=== PATIENT | male | born 1960 | race African-American/Black ===

== ENCOUNTER 2017-07-08 18:19 | Inpatient (IN) | payer SELFPAY ==
[~2017-07-08] VITALS: Ht 193 cm; Wt 112.5 kg
--- NOTE | 2017-07-08 18:38 | PHYS DOC ---
Adult General Chief Complaint Chief Complaint: SHORTNESS OF BREATH HPI HPI Patient is a 56 year old male who presents with complaint of shortness of breath. Patient states that he became short of breath earlier today. Patient states that he has been struggling with cough on and on over the past 5 weeks but states over the past week his cough has become more frequent. Patient also notes that he has had sore throat but denies any fever. Patient has not taken any medications for his symptoms. The patient states that he has been treated for asthma symptoms in the past but has not been on any medications over the course the last several months for treatment. Patient denies any chest pain. Cough is nonproductive. Shortness of breath symptoms worsen with exertion. Review of Systems Review of Systems Constitutional: Denies fever or chills [] Eyes: Denies change in visual acuity, redness, or eye pain [] HENT: Sore throat[] Respiratory: Nonproductive cough, shortness of breath[] Cardiovascular: Denies chest pain or edema[] GI: Denies abdominal pain, nausea, vomiting, bloody stools or diarrhea [] : Denies dysuria or hematuria [] Musculoskeletal: Denies back pain or joint pain [] Integument: Denies rash or skin lesions [] Neurologic: Denies headache, focal weakness or sensory changes [] All other systems were reviewed and found to be within normal limits, except as documented in this note. Allergies Allergies Allergies Coded Allergies Type Severity Reaction Last Updated Verified No Known Drug Allergies 07/08/17 No Physical Exam Physical Exam Constitutional: Alert, afebrile, appears in mild to moderate risk for distress. [] HENT: Normocephalic, atraumatic, bilateral external ears normal, oropharynx moist, no oral exudates, nose normal. [] Eyes: PERRLA, EOMI, conjunctiva normal, no discharge. [] Neck: Normal range of motion, no tenderness, supple, no stridor. [] Cardiovascular: Tachycardia, regular rhythm, no murmur [] Lungs & Thorax: Mild to moderate restriction of air movement bilaterally, no wheezes or rales, occasional rhonchi present[] Abdomen: Bowel sounds normal, soft, no tenderness, no masses, no pulsatile masses. [] Skin: Warm, dry, no erythema, no rash. [] Back: No tenderness, no CVA tenderness. [] Extremities: No tenderness, no cyanosis, no clubbing, ROM intact, no edema. [] Neurologic: Alert and oriented X 3, normal motor function, normal sensory function, no focal deficits noted. [] Current Patient Data Vital Signs Vital Signs Date Time Temp Pulse Resp B/P (MAP) Pulse Ox O2 Delivery O2 Flow Rate FiO2 07/08/17 20:20 83 20 136/73 (94) 95 Room Air 07/08/17 18:33 98.4 Lab Results Laboratory Tests Test 07/08/17 19:25 White Blood Count 7.7 x10^3/uL Red Blood Count 5.64 x10^6/uL Hemoglobin 15.6 g/dL Hematocrit 46.2 % Mean Corpuscular Volume 82 fL Mean Corpuscular Hemoglobin 28 pg Mean Corpuscular Hemoglobin Concent 34 g/dL Red Cell Distribution Width 14.1 % Platelet Count 220 x10^3/uL Neutrophils (%) (Auto) 56 % Lymphocytes (%) (Auto) 35 % Monocytes (%) (Auto) 7 % Eosinophils (%) (Auto) 2 % Basophils (%) (Auto) 1 % Neutrophils # (Auto) 4.3 x10^3uL Lymphocytes # (Auto) 2.7 x10^3/uL Monocytes # (Auto) 0.5 x10^3/uL Eosinophils # (Auto) 0.2 x10^3/uL Basophils # (Auto) 0.0 x10^3/uL D-Dimer (Isidra) 0.40 mg/L Sodium Level 142 mmol/L Potassium Level 3.4 mmol/L Chloride Level 104 mmol/L Carbon Dioxide Level 28 mmol/L Anion Gap 10 Blood Urea Nitrogen 13 mg/dL Creatinine 1.0 mg/dL Estimated GFR (Cockcroft-Gault) 93.9 BUN/Creatinine Ratio 13 Glucose Level 145 mg/dL Calcium Level 8.8 mg/dL Magnesium Level 1.8 mg/dL Total Bilirubin 0.2 mg/dL Aspartate Amino Transf (AST/SGOT) 27 U/L Alanine Aminotransferase (ALT/SGPT) 30 U/L Alkaline Phosphatase 89 U/L Creatine Kinase 502 U/L Creatine Kinase MB (Mass) 3.5 ng/mL Creatine Kinase MB Relative Index 0.7 % Troponin I Quantitative < 0.017 ng/mL RU-Vri-D-Type Natriuretic Peptide 12 pg/mL Total Protein 8.0 g/dL Albumin 3.3 g/dL Albumin/Globulin Ratio 0.7 Current Medications Medications (Trade) Dose Ordered Sig/Melida Route PRN Reason Start Time Stop Time Status Last Admin Dose Admin Albuterol/ Ipratropium (Duoneb) 3 ml 1X ONCE NEB 07/08/17 18:45 07/08/17 19:16 DC 07/08/17 18:51 Prednisone (Prednisone) 50 mg 1X ONCE PO 07/08/17 18:45 07/08/17 19:16 DC 07/08/17 19:03 Albuterol Sulfate (Ventolin) 2.5 mg 1X ONCE NEB 07/08/17 18:45 07/08/17 19:16 DC 07/08/17 18:52 Prednisone (Prednisone) 20 mg STK-MED ONCE .ROUTE 07/08/17 18:55 07/08/17 18:56 DC Aspirin (Children'S Aspirin) 324 mg 1X ONCE PO 07/08/17 19:15 07/08/17 19:16 DC 07/08/17 19:16 Sodium Chloride 1,000 ml @ 1,000 mls/hr Q1H IV 07/08/17 19:02 07/08/17 20:01 DC 07/08/17 19:18 EKG EKG Interpreted by me: Heart rate 108, sinus tachycardia, leftward axis, T-wave inversions in the lateral leads, no acute ST elevations or depressions[] Radiology/Procedures Radiology/[place] [address] IMAGING REPORT Signed PATIENT: AINSLEY LARSON ACCOUNT: [id number] : 1960 LOCATION: ER AGE: 56 SEX: M EXAM STATUS: REG ER ORD. PHYSICIAN: YONI BAGLEY MD REASON: shortness of breath, cough PROCEDURE: CHEST PA & LATERAL CHEST PA LATERAL History: SHORTNESS OF BREATH WITH COUGH, SMOKER 1/2 PPD Comparison: None. Findings: 2 views of the chest are submitted. There is some motion degradation. There is a round nodular opacity of the right lower lobe, fairly opaque. Cardiac silhouette is within normal limits. No significant pleural fluid, pneumothorax, lobar consolidation. Heart size is considered within normal limits. Impression: 1. There is fairly opaque nodular opacity in the right lower lobe although nonemergent CT evaluation recommended for further evaluation, no previous exams at this institution available for comparison. Electronically signed by: Keegan Villanueva MD (07/08/2017 6:51 PM) [facility] DICTATED AND SIGNED BY: KEEGAN VILLANUEVA MD DATE: 07/08/17 0758 CC: YONI BAGLEY MD; PCP,NO ~ [] Course & Med Decision Making Course & Med Decision Making Pertinent Labs and Imaging studies reviewed. (See chart for details) Patient was treated with DuoNeb, albuterol, and prednisone in the emergency department. Patient stated that he had mild improvement in symptoms. The patient 's EKG shows T-wave inversions in the lateral leads which raises potential concern for an acute cardiac event. Given that there is no comparison at this time, the patient will need admission to the hospital for further cardiac evaluation as well as further treatment of shortness of breath symptoms. I spoke with Dr. Taylor who accepted care patient in hospital. Dragon Disclaimer Dragon Disclaimer This electronic medical record was generated, in whole or in part, using a voice recognition dictation system. Departure Departure: Impression: Primary Impression: Dyspnea on exertion Additional Impression: Abnormal EKG Disposition: ADMITTED INPATIENT Admitting Physician: Kaycee Taylor Condition: STABLE Referrals: PCP,NO (PCP) Problem Qualifiers YONI BAGLEY MD July 08, 2017 18:38
[2017-07-08] MEDS ORDERED: predniSONE 10 MG TABLET PO ONE (18:45)
[2017-07-08] MEDS ORDERED: IPRATRPIUM/ALBUTEROL 0.5/2.5MG 3 ML NEBU. NEB ONE (18:45)
[2017-07-08] MEDS ORDERED: ALBUTEROL SULFATE 2.5 MG/3 ML NEBU. NEB ONE (18:45)
--- NOTE | 2017-07-08 18:54 | RAD ---
CHEST PA LATERAL History: SHORTNESS OF BREATH WITH COUGH, SMOKER 1/2 PPD Comparison: None. Findings: 2 views of the chest are submitted. There is some motion degradation. There is a round nodular opacity of the right lower lobe, fairly opaque. Cardiac silhouette is within normal limits. No significant pleural fluid, pneumothorax, lobar consolidation. Heart size is considered within normal limits. Impression: 1. There is fairly opaque nodular opacity in the right lower lobe although nonemergent CT evaluation recommended for further evaluation, no previous exams at this institution available for comparison. Electronically signed by: Bimal Fox MD (07/08/2017 6:51 PM) [facility]
[2017-07-08] MEDS ORDERED: predniSONE 20 MG TABLET ONE (18:55)
[2017-07-08] MEDS ORDERED: IV NORMAL SALINE 1,000ML 1,000 ML IV SCH (19:02)
[2017-07-08] MEDS ORDERED: ASPIRIN 81 MG TAB.CHEW PO ONE (19:15)
--- NOTE | 2017-07-08 19:45 | EKG ---
[address] [address] Test Date: 2017-07-08 Test Time: 18:57:08 Pat Name: AINSLEY LARSON Department: Room: Gender: M [employer] Consultant: LUAN : 1960 Requested By: YONI BAGLEY Order Number: [id number] Reading MD: Measurements Intervals [place] Rate: 108 P: -75 WA: 132 QRS: -19 QRSD: 96 T: 97 QT: 320 QTc: 432 Interpretive Statements SINUS TACHYCARDIA LEFTWARD AXIS QRS(T) CONTOUR ABNORMALITY CONSISTENT WITH ANTEROSEPTAL INFARCT PROBABLY OLD T ABNORMALITY IN HIGH LATERAL LEADS ABNORMAL ECG RI6.01 No previous ECG available for comparison
[2017-07-08 19:51] LABS: BASO % 1 % (0-3); EOS # 0.2 x10^3/uL (0.0-0.7); EOS % 2 % (0-3); HEMATOCRIT 46.2 % (39.0-53.0); HEMOGLOBIN 15.6 g/dL (13.0-17.5); LYMPH # 2.7 x10^3/uL (1.0-4.8); LYMPH % 35 % (24-48); MEAN CORPUSCULAR HEMOGLOBIN 28 pg (25-35); MEAN CORPUSCULAR HGB CONC 34 g/dL (31-37); MEAN CORPUSCULAR VOLUME 82 fL (79-100); MONO # 0.5 x10^3/uL (0.0-1.1); MONO % 7 % (0-9); NEUT # 4.3 x10^3uL (1.8-7.7); NEUT % 56 % (31-73); PLATELET COUNT 220 x10^3/uL (140-400); RED BLOOD COUNT 5.64 x10^6/uL (4.30-5.70); RED CELL DISTRIBUTION WIDTH 14.1 % (11.5-14.5); WHITE BLOOD COUNT 7.7 x10^3/uL (4.0-11.0)
[2017-07-08 20:21] LABS: ALBUMIN 3.3 g/dL (3.4-5.0); ALBUMIN/GLOBULIN RATIO 0.7 (1.0-1.7); CALCIUM 8.8 mg/dL (8.5-10.1); GFR 93.9; MAGNESIUM 1.8 mg/dL (1.8-2.4); POTASSIUM 3.4 mmol/L (3.5-5.1); TOTAL BILIRUBIN 0.2 mg/dL (0.2-1.0)
[2017-07-08] MEDS ORDERED: ONDANSETRON PF 4 MG/2 ML VIAL. IV PRN (20:45)
[2017-07-08] MEDS ORDERED: ACETAMINOPHEN 325 MG TABLET PO PRN (20:45)
[2017-07-08] MEDS ORDERED: predniSONE 20 MG TABLET PO SCH (21:00)
[2017-07-08] MEDS ORDERED: ONDANSETRON ODT 4 MG TAB.RAPDIS PO PRN (21:15)
[2017-07-08 21:34] VITALS: BP 147/78
[2017-07-08] MEDS: IV NORMAL SALINE 1,000ML 1,000 ML IV SCH (21:40)
[2017-07-08 23:12] LABS: BACTERIA,URINE 0 /HPF (0-FEW); BILIRUBIN,URINE NEG (NEG); CLARITY,URINE CLEAR; COLOR,URINE YELLOW; GLUCOSE,URINE NEG (NEG); NITRITE,URINE NEG (NEG); RBC,URINE 0 /HPF (0-2); SQUAMOUS EPITHELIAL CELL,UR OCC /LPF; UROBILINOGEN,URINE 2 mg/dL (0.2 mg/dL); WBC,URINE OCC /HPF (0-4)
[2017-07-08] MEDS ORDERED: ALBU8.5H8 INH (23:38)
[2017-07-09] MEDS: IPRATRPIUM/ALBUTEROL 0.5/2.5MG 3 ML NEBU. NEB SCH ×4 (05:38→21:08)
[2017-07-09 05:56] VITALS: BP 155/95
[2017-07-09] MEDS: IV NORMAL SALINE 1,000ML 1,000 ML IV SCH ×2 (05:59→13:55)
[2017-07-09 06:39] LABS: BASO # 0.1 x10^3/uL (0.0-0.2); BASO % 1 % (0-3); EOS % 0 % (0-3); HEMATOCRIT 42.8 % (39.0-53.0); HEMOGLOBIN 14.5 g/dL (13.0-17.5); LYMPH # 1.1 x10^3/uL (1.0-4.8); LYMPH % 10 % (24-48); MEAN CORPUSCULAR HEMOGLOBIN 28 pg (25-35); MEAN CORPUSCULAR HGB CONC 34 g/dL (31-37); MEAN CORPUSCULAR VOLUME 82 fL (79-100); MONO # 0.4 x10^3/uL (0.0-1.1); MONO % 4 % (0-9); NEUT # 9.2 x10^3uL (1.8-7.7); NEUT % 86 % (31-73); PLATELET COUNT 229 x10^3/uL (140-400); RED BLOOD COUNT 5.24 x10^6/uL (4.30-5.70); RED CELL DISTRIBUTION WIDTH 13.9 % (11.5-14.5); WHITE BLOOD COUNT 10.8 x10^3/uL (4.0-11.0)
[2017-07-09 06:52] LABS: CALCIUM 8.8 mg/dL (8.5-10.1); CREATININE 0.9 mg/dL (0.7-1.3); POTASSIUM 4.3 mmol/L (3.5-5.1)
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
[2017-07-09] MEDS ORDERED: predniSONE 20 MG TABLET PO SCH (09:00)
[2017-07-09 10:58] VITALS: BP 141/71
[2017-07-09] MEDS ORDERED: ALBUTEROL SULFATE 2.5 MG/3 ML NEBU. NEB PRN (15:15)
[2017-07-09] MEDS: methylPREDNISolone SOD SUCC PF 40 MG/ML VIAL. IV SCH ×2 (15:29→21:47)
[2017-07-09 15:36] VITALS: BP 145/81
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
--- NOTE | 2017-07-09 16:34 | CARD ---
MR#: [id number] Date of Study: 07/09/2017 Ordering Physician: REJI ZAFAR, Referring Physician: GAVIN BENSON, Tech: BRITTANY Strong APPROVED REPORT EXAM: Two-dimensional and M-mode echocardiogram with Doppler and color Doppler. Other Information Quality : Fair INDICATION Abnormal ECG Dyspnea 2D DIMENSIONS Left Atrium(2D)4.9 (1.6-4.0cm)IVSd0.9 (0.7-1.1cm) Aortic Root(2D)3.1 (2.0-3.7cm)LVDd5.4 (3.9-5.9cm) LVOT Diameter2.3 (1.8-2.4cm)PWd1.4 (0.7-1.1cm) LVDs3.0 (2.5-4.0cm)FS (%) 28.0 % LVEF(%)60.0 (>50%) Aortic Valve AoV Peak Armando.167.9cm/Alix Peak GR.11.3mmHg LVOT Peak Armando.72.6cm/sAVA (VMAX)1.72cm2 Mitral Valve MV E Ddiayzst20.9cm/sMV DECEL [id number] MV A Lpcdjrtt49.1cm/sE/A Ratio1.2 Tricuspid Valve TR P. Ndtuzseo951gk/sRAP IZSDVJRL8ciAo TR Peak Gr.30dmNgEAJH74maZd LEFT VENTRICLE The left ventricle is normal size. There is normal left ventricular wall thickness. The left ventricu lar systolic function is normal. The Ejection Fraction is 60-65%. There is normal LV segmental wall m otion. RIGHT VENTRICLE The right ventricle is normal size. There is normal right ventricular wall thickness. The right ventr icular systolic function is normal. ATRIA The left atrium is mildly dilated. The right atrium size is normal. The interatrial septum is intact with no evidence for an atrial septal defect or patent foramen ovale as noted on 2-D or Doppler imagi ng. AORTIC VALVE The aortic valve is trileaflet. Doppler and Color Flow revealed trace aortic regurgitation. There is no significant aortic valvular stenosis. MITRAL VALVE There is no evidence of mitral valve prolapse. There is no mitral valve stenosis. Doppler and Color-f low revealed trace mitral regurgitation. TRICUSPID VALVE Doppler and Color Flow revealed trace tricuspid regurgitation. There is no tricuspid valve stenosis. PULMONIC VALVE The pulmonic valve is not well visualized. Doppler and Color Flow revealed no pulmonic valvular regur gitation. There is no pulmonic valvular stenosis. GREAT VESSELS The aortic root is normal in size. Was not able to visualize the IVC. PERICARDIAL EFFUSION There is no pleural effusion. There is no evidence of significant pericardial effusion. Critical Notification Critical Value: No <Conclusion> The left ventricular systolic function is normal. The Ejection Fraction is 60-65%. There is normal LV segmental wall motion. Trace mitral regurgitation. Trace tricuspid regurgitation. There is no evidence of significant pericardial effusion. Signed by : Lennox Peters, Electronically Approved : 07/09/2017 16:32:54
[2017-07-09 19:00] VITALS: BP 152/77
[2017-07-09] MEDS ORDERED: MONTELUKAST 10 MG TABLET. PO SCH (21:00)
[2017-07-09] MEDS: DOXYCYCLINE HYCLATE 100 MG TABLET PO SCH (21:47)
--- NOTE | 2017-07-09 22:03 | PN ---
DATE: 07/09/2017 SUBJECTIVE: The patient was admitted yesterday with cough and shortness of breath; however, he has 3 sets of cardiac enzymes that were negative. He was seen by the Cardiology team and ordered an echocardiogram. He did have his fasting lipid profile, showed that his triglycerides 134, total cholesterol 191, LDL was 135, VLDL was 6, and HDL was 50. However, on further questioning him, apparently he has cough with chest tightness and wheezing on examining him. He clearly has marked diffuse wheezing bilaterally. He apparently smokes about a pack a day and he said that he was diagnosed with bronchial asthma in 2003 and was using inhalers. PHYSICAL EXAMINATION: GENERAL: When I examined him this afternoon, he was resting slightly propped up in bed with recurrent bouts of cough that seems to be dry hacking cough. No pallor, jaundice, cyanosis, or thyromegaly. No jugular venous distension. No limb edema. VITAL SIGNS: His heart rate was 68, blood pressure 141/71, temperature was 98.2, respiratory rate 18, and oxygen saturation was 97% on room air. HEAD, EYES, EAR, NOSE, AND THROAT: Showed normocephalic, atraumatic. NECK: Supple. HEART: Showed normal first and second heart sounds with no gallop, rub, or murmur. CHEST: Shows central trachea, equal bilateral expansion, air entry. Diffuse bilateral wheezing. I could not appreciate any crepitation. ABDOMEN: Distended, soft, nontender. NEUROLOGIC: He was awake, alert, responding appropriately. Cranial nerves intact. He moves extremities without difficulty. LABORATORY DATA: Today showed a white cell count of 10,800, hemoglobin 14, hematocrit 42, MCV 82, and platelet count of 229,000. Chemistry showed a serum sodium 141, potassium 4.3, chloride 105, bicarbonate 26, anion gap of 10, BUN 10, creatinine 0.9, estimated GFR 106 mL per minute, his glucose 136, and calcium was 8.8. ASSESSMENT: The patient had 3 sets of cardiac enzymes that ruled out myocardial infarction. The patient probably has either bronchial asthma or chronic obstructive pulmonary disease exacerbation. PLAN: My plan is to start him on Solu-Medrol and bronchodilator and also Zithromax and doxycycline. GAVIN BENSON MD DR: ALISIA/belgica JOB#: [id number] / [id number]
[2017-07-09 23:18] VITALS: BP 134/75
[2017-07-10] MEDS: methylPREDNISolone SOD SUCC PF 40 MG/ML VIAL. IV SCH (05:53)
[2017-07-10 05:55] VITALS: BP 134/80
[2017-07-10] MEDS: IPRATRPIUM/ALBUTEROL 0.5/2.5MG 3 ML NEBU. NEB SCH ×2 (08:00→09:48)
[2017-07-10] MEDS: DOXYCYCLINE HYCLATE 100 MG TABLET PO SCH (09:08)
--- NOTE | 2017-07-10 09:15 | PDOC ---
PROGRESS NOTES Diagnosis Problem Problems Medical Problems: (1) Abnormal EKG Status: Acute (2) Dyspnea on exertion Status: Acute Assessment Problems Medical Problems: (1) Abnormal EKG Status: Acute (2) Dyspnea on exertion Status: Acute 1. Dyspnea on exertion secondary to prob acute bronchitis 2. Abnormal EKG - non specific, no acute abnormalities. 3. sinus tachy - reactive Echo reveals normal LV function and wall motion. Ok for DC from CV perspective. Outpatient follow up and MPI when bronchitis resolved. Subjective no new complaints. cough continues but reports dyspnea improved. wants to go home. Objective Vital Signs Date Time Temp Pulse Resp B/P (MAP) Pulse Ox O2 Delivery O2 Flow Rate FiO2 07/10/17 05:55 77 134/80 (98) 97 Room Air 07/09/17 23:18 97.9 20 Intake and Output 07/10/17 07:00 Intake Total 2692.21 ml Output Total 2025 ml Balance 667.21 ml Intake Oral 1440 ml IV Total 1252.21 ml Output Urine Total 2025 ml Heart: Regular rate, Normal S1, Normal S2 Extremities: No edema General: Alert, Oriented X3, Cooperative, No acute distress Lungs: Clear to auscultation Psych/Mental Status: Mental status NL, Mood NL Review of Relevant I have reviewed the following items isaac (where applicable) has been applied. Labs Laboratory Tests Test 07/08/17 18:38 07/08/17 19:25 07/08/17 21:59 07/08/17 22:40 Group A Streptococcus Rapid Negative (NEGATIVE) White Blood Count 7.7 x10^3/uL (4.0-11.0) Red Blood Count 5.64 x10^6/uL (4.30-5.70) Hemoglobin 15.6 g/dL (13.0-17.5) Hematocrit 46.2 % (39.0-53.0) Mean Corpuscular Volume 82 fL (79-100) Mean Corpuscular Hemoglobin 28 pg (25-35) Mean Corpuscular Hemoglobin Concent 34 g/dL (31-37) Red Cell Distribution Width 14.1 % (11.5-14.5) Platelet Count 220 x10^3/uL (140-400) Neutrophils (%) (Auto) 56 % (31-73) Lymphocytes (%) (Auto) 35 % (24-48) Monocytes (%) (Auto) 7 % (0-9) Eosinophils (%) (Auto) 2 % (0-3) Basophils (%) (Auto) 1 % (0-3) Neutrophils # (Auto) 4.3 x10^3uL (1.8-7.7) Lymphocytes # (Auto) 2.7 x10^3/uL (1.0-4.8) Monocytes # (Auto) 0.5 x10^3/uL (0.0-1.1) Eosinophils # (Auto) 0.2 x10^3/uL (0.0-0.7) Basophils # (Auto) 0.0 x10^3/uL (0.0-0.2) D-Dimer (Isidra) 0.40 mg/L (0.00-0.50) Sodium Level 142 mmol/L (136-145) Potassium Level 3.4 mmol/L (3.5-5.1) Chloride Level 104 mmol/L (98-107) Carbon Dioxide Level 28 mmol/L (21-32) Anion Gap 10 (6-14) Blood Urea Nitrogen 13 mg/dL (8-26) Creatinine 1.0 mg/dL (0.7-1.3) Estimated GFR (Cockcroft-Gault) 93.9 BUN/Creatinine Ratio 13 (6-20) Glucose Level 145 mg/dL (70-99) Calcium Level 8.8 mg/dL (8.5-10.1) Magnesium Level 1.8 mg/dL (1.8-2.4) Total Bilirubin 0.2 mg/dL (0.2-1.0) Aspartate Amino Transf (AST/SGOT) 27 U/L (15-37) Alanine Aminotransferase (ALT/SGPT) 30 U/L (16-63) Alkaline Phosphatase 89 U/L (46-116) Creatine Kinase 502 U/L (39-308) Creatine Kinase MB (Mass) 3.5 ng/mL (0.0-3.6) Creatine Kinase MB Relative Index 0.7 % (0-4) Troponin I Quantitative < 0.017 ng/mL (0-0.055) SG-Naf-E-Type Natriuretic Peptide 12 pg/mL (0-124) Total Protein 8.0 g/dL (6.4-8.2) Albumin 3.3 g/dL (3.4-5.0) Albumin/Globulin Ratio 0.7 (1.0-1.7) Nasal Screen MRSA (PCR) Negative (Negative) Urine Collection Type Unknown Urine Color Yellow Urine Clarity Clear Urine pH 6.5 Urine Specific [place] 1.020 Urine Protein 30 mg/dl (NEG-TRACE) Urine Glucose (UA) Neg mg/dL (NEG) Urine Ketones (Stick) Trace mg/dL (NEG) Urine Blood Neg (NEG) Urine Nitrite Neg (NEG) Urine Bilirubin Neg (NEG) Urine Urobilinogen Dipstick 2 mg/dL (0.2 mg/dL) Urine Leukocyte Esterase Neg (NEG) Urine RBC 0 /HPF (0-2) Urine WBC Occ /HPF (0-4) Urine Squamous Epithelial Cells Occ /LPF Urine Bacteria 0 /HPF (0-FEW) Test 07/08/17 23:50 07/09/17 06:18 Troponin I Quantitative < 0.017 ng/mL (0-0.055) < 0.017 ng/mL (0-0.055) White Blood Count 10.8 x10^3/uL (4.0-11.0) Red Blood Count 5.24 x10^6/uL (4.30-5.70) Hemoglobin 14.5 g/dL (13.0-17.5) Hematocrit 42.8 % (39.0-53.0) Mean Corpuscular Volume 82 fL (79-100) Mean Corpuscular Hemoglobin 28 pg (25-35) Mean Corpuscular Hemoglobin Concent 34 g/dL (31-37) Red Cell Distribution Width 13.9 % (11.5-14.5) Platelet Count 229 x10^3/uL (140-400) Neutrophils (%) (Auto) 86 % (31-73) Lymphocytes (%) (Auto) 10 % (24-48) Monocytes (%) (Auto) 4 % (0-9) Eosinophils (%) (Auto) 0 % (0-3) Basophils (%) (Auto) 1 % (0-3) Neutrophils # (Auto) 9.2 x10^3uL (1.8-7.7) Lymphocytes # (Auto) 1.1 x10^3/uL (1.0-4.8) Monocytes # (Auto) 0.4 x10^3/uL (0.0-1.1) Eosinophils # (Auto) 0.0 x10^3/uL (0.0-0.7) Basophils # (Auto) 0.1 x10^3/uL (0.0-0.2) Sodium Level 141 mmol/L (136-145) Potassium Level 4.3 mmol/L (3.5-5.1) Chloride Level 105 mmol/L (98-107) Carbon Dioxide Level 26 mmol/L (21-32) Anion Gap 10 (6-14) Blood Urea Nitrogen 10 mg/dL (8-26) Creatinine 0.9 mg/dL (0.7-1.3) Estimated GFR (Cockcroft-Gault) 106.0 Glucose Level 136 mg/dL (70-99) Calcium Level 8.8 mg/dL (8.5-10.1) Triglycerides Level 34 mg/dL (0-150) Cholesterol Level 191 mg/dL (0-200) LDL Cholesterol, Calculated 135 mg/dL (0-100) VLDL Cholesterol, Calculated 6 mg/dL (0-40) Non-HDL Cholesterol Calculated 141 mg/dL (0-129) HDL Cholesterol 50 mg/dL (40-60) Cholesterol/HDL Ratio 3.0 Medications Current Medications Albuterol/ Ipratropium (Duoneb) 3 ml 1X ONCE NEB Last administered on at 18:51; Start 07/08/17 at 18:45; Stop 07/08/17 at 19:16; Status DC Prednisone (Prednisone) 50 mg 1X ONCE PO Last administered on 07/08/17at 19:03 ; Start 07/08/17 at 18:45; Stop 07/08/17 at 19:16; Status DC Albuterol Sulfate (Ventolin) 2.5 mg 1X ONCE NEB Last administered on at 18:52; Start 07/08/17 at 18:45; Stop 07/08/17 at 19:16; Status DC Prednisone (Prednisone) 20 mg STK-MED ONCE .ROUTE ; Start 07/08/17 at 18:55; Stop 07/08/17 at 18:56; Status DC Aspirin (Children'S Aspirin) 324 mg 1X ONCE PO Last administered on 07/08/17at 19:16; Start 07/08/17 at 19:15; Stop 07/08/17 at 19:16; Status DC Sodium Chloride 1,000 ml @ 1,000 mls/hr Q1H IV Last administered on 07/08/17at 19:18; Start 07/08/17 at 19:02; Stop 07/08/17 at 20:01; Status DC Ondansetron HCl (Zofran) 4 mg PRN Q4HRS PRN IV NAUSEA/VOMITING; Start 07/08/17 at 20:45; Stop 07/09/17 at 20:44; Status DC Sodium Chloride 1,000 ml @ 125 mls/hr Q8H IV Last administered on 07/09/17at 13 :55; Start 07/08/17 at 20:44; Stop 07/09/17 at 20:43; Status DC Acetaminophen (Tylenol) 650 mg PRN Q4HRS PRN PO FEVER; Start 07/08/17 at 20:45 ; Stop 07/09/17 at 20:44; Status DC Albuterol/ Ipratropium (Duoneb) 3 ml RTQID NEB Last administered on 07/09/17at 11:57; Start 07/09/17 at 08:00; Stop 07/09/17 at 15:11; Status DC Prednisone (Prednisone) 20 mg BID PO ; Start 07/08/17 at 21:00; Stop 07/08/17 at 21:12; Status DC Prednisone (Prednisone) 20 mg BID PO Last administered on 07/09/17at 08:50; Start 07/09/17 at 09:00; Stop 07/09/17 at 15:23; Status DC Ondansetron HCl (Zofran Odt) 4 mg PRN Q4HRS PRN PO NAUSEA/VOMITING; Start 07/08 at 21:15 Albuterol/ Ipratropium (Duoneb) 3 ml RTQID NEB Last administered on 07/09/17at 21:08; Start 07/09/17 at 16:00 Albuterol Sulfate (Ventolin) 2.5 mg PRN Q2HR PRN NEB SHORTNESS OF BREATH Last administered on 07/10/17at 00:30; Start 07/09/17 at 15:15 Methylprednisolone Sodium Succinate (SOLU-Medrol 40MG VIAL) 40 mg Q8HRS IV Last administered on 07/10/17at 05:53; Start 07/09/17 at 15:17 Montelukast Sodium (Singulair) 10 mg QHS PO Last administered on 07/09/17at 21: 47; Start 07/09/17 at 21:00 Doxycycline Hyclate (Vibra-Tab) 100 mg BID PO Last administered on 07/10/17at 09 :08; Start 07/09/17 at 21:00 Active Scripts Active Reported Proair Hfa Inhaler (Albuterol Sulfate) 8.5 Gm Hfa.aer.ad 2 Puff INH PRN Q6HRS PRN Vitals/I & O Vital Sign - Last 24 Hours 07/09/17 07/09/17 07/09/17 07/09/17 10:58 11:57 15:36 16:48 Temp 98.2 98.1 Pulse 68 81 Resp 18 20 B/P (MAP) 141/71 (94) 145/81 (102) Pulse Ox 97 99 95 97 O2 Delivery Room Air Room Air Room Air Room Air 07/09/17 07/09/17 07/09/17 07/09/17 19:00 19:50 20:39 23:18 Temp 98.2 97.9 Pulse 75 73 Resp 20 20 B/P (MAP) 152/77 (102) 134/75 (94) Pulse Ox 95 96 94 O2 Delivery Room Air Room Air Room Air Room Air 07/10/17 07/10/17 05:15 05:55 Pulse 77 B/P (MAP) 134/80 (98) Pulse Ox 96 97 O2 Delivery Room Air Room Air Intake and Output 07/09/17 07/09/17 07/10/17 15:00 23:00 07:00 Intake Total 960 ml 1492.21 ml 240 ml Output Total 1600 ml 425 ml Balance -640 ml 1067.21 ml 240 ml REJI ZAFAR APRN July 10, 2017 09:15
[2017-07-10 10:50] VITALS: BP 134/83
[2017-07-10] MEDS ORDERED: DOXY100C2 PO (13:28)
--- NOTE | 2017-07-10 19:50 | DS ---
DATE OF DISCHARGE: 07/10/2017 HOSPITAL COURSE: The patient is a 56-year-old -[place] male patient, currently a resident at [facility], who presented to the Emergency Room complaining of recurrent bouts of cough, shortness of breath and chest tightness and wheezing. He was seen in consultation by the Cardiology team and has had 3 sets of cardiac enzymes that were negative; however, he apparently was a heavy smoker and his chest examination showed he has ____ recurrent bouts of cough, mostly dry, nonproductive; diffuse wheezing and therefore we start him on IV steroids as well as nebulized albuterol and Atrovent and oral doxycycline and the patient did extremely well. PHYSICAL EXAMINATION: GENERAL: When I saw him today, he was resting slightly propped up in bed, clearly markedly comfortable. When I examined him, there was no pallor, jaundice, cyanosis, or thyromegaly. No jugular venous distension. No lower limb edema. VITAL SIGNS: His heart rate was 92, blood pressure was 134/83, temperature was 97.9, respiratory rate was 20, and oxygen saturation was 95%. HEAD, EYES, EARS, NOSE AND THROAT: Showed normocephalic, atraumatic. NECK: Supple. HEART: Showed normal first and second heart sounds. No gallop, rub or murmur. CHEST: Showed central trachea, equal bilateral expansion, air entry, vesicular breath sounds. No crepitation or rhonchi. ABDOMEN: Distended, soft, and nontender. No guarding or rigidity. No organomegaly. Hernial orifice was intact. Bowel sounds normal. NEUROLOGIC: He was awake, alert, and responding appropriately. Cranial nerves intact. EXTREMITIES: He moves extremities without difficulty, ambulates without assistance or assistive devices. LABORATORY DATA: His lab work showed a white cell count 10,800, hemoglobin 14, hematocrit 42, MCV 82 and platelet count of ____. His serum sodium was 141, potassium 4.3, chloride 105, bicarbonate 26, anion gap of 10, BUN 10, creatinine 0.9, estimated GFR was 106 mL per minute. His glucose was 136 and calcium was 8.8. As I stated earlier, his 3 sets of cardiac enzymes were negative. His serum triglyceride was ____, total cholesterol was 191, LDL was 135, VLDL was 6, and HDL was 50, and cholesterol to HDL cholesterol ratio was 3. His D-dimer was only 0.4. Urinalysis was unremarkable. His nasal screen for MRSA with PCR was negative. DISCHARGE MEDICATIONS: The patient was discharged home to continue on tapering course of steroids in the form of prednisone as well as doxycycline 100 mg 3 times a day as well as albuterol inhaler 2 puffs every 4 hours. FINAL DISCHARGE DIAGNOSES: 1. Acute bronchitis. 2. Chronic obstructive pulmonary disease exacerbation. GAVIN BENSON MD DR: ALISIA/belgica JOB#: [id number] / [id number]
[2017-07-10] MEDS ORDERED: LACTOBACILLUS RHAMNOSUS GG 1 CAPSULE. PO SCH (21:00)
== END 2017-07-10 14:00 | disposition home or self-care (01) | DRG 192 ==
LOC: ER 18:19 → 1 SOUTH 20:04
PROVIDERS: ADMIT Internal Medicine; ATTEND Internal Medicine
DX: J44.0 Chronic obstructive pulmonary disease with (acute) lower respiratory infection (principal); F17.210 Nicotine dependence, cigarettes, uncomplicated; J20.9 Acute bronchitis, unspecified; J44.1 Chronic obstructive pulmonary disease with (acute) exacerbation; R94.31 Abnormal electrocardiogram [ECG] [EKG]
CPT/HCPCS: 36415; 71046; 80048; 80053; 80061; 81001; 82553; 83735; 83880; 84484; 85025; 85379; 87070; 87641; 87880; 93005; 93306; 94640; 96360; J2920; J7512; J7613; J7620; 99285-25; J7030

== ENCOUNTER 2017-08-12 23:20 | Emergency (ER) | payer SELFPAY ==
[~2017-08-12] VITALS: Ht 193 cm; Wt 109.0 kg
[~2017-08-12 23:20] MED LIST: ALBU8.5H8 INH; DOXY100C2 PO
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
[2017-08-13] MEDS ORDERED: IV RINGERS SOLUTION,LACTATED 1,000 ML IV SCH (00:15)
[2017-08-13] MEDS ORDERED: ALBUTEROL SULFATE 8GM INHALER. INH ONE (00:15)
[2017-08-13] MEDS ORDERED: predniSONE 20 MG TABLET PO ONE (00:15)
[2017-08-13] MEDS ORDERED: AZITHROMYCIN 250 MG TABLET. PO ONE (00:15)
--- NOTE | 2017-08-13 00:17 | RAD ---
PA and lateral chest radiographs 08/13/2017 CLINICAL HISTORY: Cough. PA and lateral digital radiographs of the chest were obtained. The cardiac silhouette is normal in size. The thoracic aorta is minimally tortuous. A 2 cm nodular opacity is seen involving the right lower lobe, unchanged. No acute pulmonary infiltrate is seen. No pleural effusion or pneumothorax is noted. Degenerative changes are seen involving the thoracic spine. Minimal S-shaped curvature of the thoracolumbar spine is seen. IMPRESSION: No acute abnormality is seen. Electronically signed by: Timmy Bahena MD (08/13/2017 12:13 AM) [facility]
[2017-08-13 00:42] LABS: BASO # 0.1 x10^3/uL (0.0-0.2); BASO % 1 % (0-3); EOS # 0.1 x10^3/uL (0.0-0.7); EOS % 2 % (0-3); HEMATOCRIT 45.1 % (39.0-53.0); LYMPH # 1.6 x10^3/uL (1.0-4.8); LYMPH % 21 % (24-48); MEAN CORPUSCULAR HEMOGLOBIN 28 pg (25-35); MEAN CORPUSCULAR HGB CONC 33 g/dL (31-37); MEAN CORPUSCULAR VOLUME 83 fL (79-100); MONO # 0.5 x10^3/uL (0.0-1.1); MONO % 7 % (0-9); NEUT % 69 % (31-73); PLATELET COUNT 233 x10^3/uL (140-400); RED BLOOD COUNT 5.47 x10^6/uL (4.30-5.70); RED CELL DISTRIBUTION WIDTH 14.4 % (11.5-14.5); WHITE BLOOD COUNT 7.4 x10^3/uL (4.0-11.0)
[2017-08-13] MEDS ORDERED: CONTRAST GIVEN MC PRN (01:00)
[2017-08-13] MEDS ORDERED: IOHEXOL 300 MG/ML 75 ML VIAL. IV ONE (01:00)
[2017-08-13 01:05] LABS: CALCIUM 8.6 mg/dL (8.5-10.1); CREATININE 0.8 mg/dL (0.7-1.3); DIRECT BILIRUBIN 0.1 mg/dL (0.0-0.2); GFR 121.4; MAGNESIUM 1.8 mg/dL (1.8-2.4); POTASSIUM 3.9 mmol/L (3.5-5.1); TOTAL BILIRUBIN 0.2 mg/dL (0.2-1.0)
--- NOTE | 2017-08-13 02:09 | EKG ---
[address] [address] Test Date: 2017-08-13 Test Time: 00:13:48 Pat Name: AINSLEY LARSON Department: Room: Gender: M Manager Risk: TITO : 1960 Requested By: JOHN ARNOLD Order Number: [id number] Reading MD: Mckinley Eldridge MD Measurements Intervals [place] Rate: 73 P: 56 KS: 170 QRS: -21 QRSD: 100 T: 29 QT: 368 QTc: 409 Interpretive Statements SINUS RHYTHM Electronically Signed On 08-13-2017 10:26:00 CDT by Mckinley Eldridge MD
[2017-08-13 02:30] LABS: BARBITURATES NEG (NEG); BENZODIAZEPINES NEG (NEG); CANNABINOIDS NEG (NEG); COCAINE NEG (NEG); METHADONE NEG (NEG); OPIATES NEG (NEG); PHENCYCLIDINE NEG (NEG)
[2017-08-13 02:33] LABS: AMPHETAMINE/METHAMPHETAMINE NEG (NEG)
[2017-08-13 02:35] LABS: BACTERIA,URINE 0 /HPF (0-FEW); BILIRUBIN,URINE NEG (NEG); CLARITY,URINE CLEAR; COLOR,URINE YELLOW; GLUCOSE,URINE NEG (NEG); NITRITE,URINE NEG (NEG); RBC,URINE 0 /HPF (0-2); SQUAMOUS EPITHELIAL CELL,UR OCC /LPF; UROBILINOGEN,URINE 2 mg/dL (0.2 mg/dL); WBC,URINE RARE /HPF (0-4)
--- NOTE | 2017-08-13 02:43 | RAD ---
EXAM: CT ANGIOGRAPHY OF THE CHEST WITH AND WITHOUT INTRAVENOUS CONTRAST. HISTORY: Shortness of breath, cough. TECHNIQUE: Computed tomographic angiography of the chest was performed before and after the intravenous administration of 75 mL Omnipaque 300. 3-D maximum intensity projections were also performed. COMPARISON: None. FINDINGS: Images of the upper abdomen reveal calcified granulomas in the liver and spleen. Bone windows reveal no suspicious lesions. No pulmonary emboli are identified. The main pulmonary artery is enlarged at 3.3 cm. There is no aortic dissection or aneurysm. There are no pathologically enlarged mediastinal or axillary lymph nodes. Calcified mediastinal lymph nodes are likely secondary to old granulomatous disease. There is no pleural or pericardial effusion. The heart is mildly enlarged. There is mild to moderate paraseptal emphysema in the apices. There is lesser centrilobular emphysema. Bronchial wall thickening indicates acute or chronic bronchitis. Calcified granulomas are most notable in the right lower lobe. Groundglass opacity in the bases most likely indicates atelectasis. IMPRESSION: 1. No pulmonary embolism. 2. Mild to moderate centrilobular and paraseptal emphysema. Bronchial wall thickening is consistent with acute or chronic bronchitis. 3. Enlargement of the main pulmonary arteries consistent with pulmonary arterial hypertension. 4. Mild cardiomegaly. *One or more of the following individualized dose reduction techniques were utilized for this examination: 1. Automated exposure control. 2. Adjustment of the mA and/or kV according to patient size. 3. Use of iterative reconstruction technique. Electronically signed by: Chris Garcia MD (08/13/2017 2:39 AM) [facility]
[2017-08-13] MEDS ORDERED: PRED50TA PO (03:14)
[2017-08-13] MEDS ORDERED: AZIT250T PO (03:14)
[2017-08-13 03:37] VITALS: BP 125/79
== END 2017-08-13 03:33 | disposition home or self-care (01) ==
LOC: ER 23:20
DX: J45.909 Unspecified asthma, uncomplicated (principal); J43.2 Centrilobular emphysema; I10 Essential (primary) hypertension; J43.8 Other emphysema; J42 Unspecified chronic bronchitis; R91.1 Solitary pulmonary nodule; F17.210 Nicotine dependence, cigarettes, uncomplicated
CPT/HCPCS: 36415; 71046; 71275; 80048; 80076; 80307; 81001; 82553; 83735; 83880; 84484; 85025; 85379; 85610; 85730; 93005; 94640; 99285; J0456; J7120; J7512; J7613; Q9967; G0479